=== PATIENT | female | born 1960 | race Caucasian/White ===

== ENCOUNTER 2016-08-17 12:02 | Emergency (ER) | payer OTHER ==
[~2016-08-17] VITALS: Ht 160 cm; Wt 82.6 kg
[2016-08-17 12:08] VITALS: TEMP 36.9; Ht 160 cm; Wt 82.6 kg
[2016-08-17] MEDS ORDERED: TRAZ1TAB52 PO (12:56)
[2016-08-17] MEDS ORDERED: BUSP15TA70 PO (12:56)
[2016-08-17] MEDS ORDERED: BUPR-79 PO (12:56)
[2016-08-17] MEDS ORDERED: CLON1TAB3 PO (12:56)
[2016-08-17] MEDS ORDERED: PROB1TAB16 PO (12:56)
[2016-08-17] MEDS ORDERED: HYDR25CA PO (12:56)
[2016-08-17] MEDS ORDERED: ESCI1TAB10 PO (12:56)
[2016-08-17] MEDS ORDERED: METH1TAB12 PO (12:56)
[2016-08-17] MEDS ORDERED: TRIA37.5 PO (12:56)
[2016-08-17] MEDS ORDERED: LOSA50TA6 PO (12:56)
[2016-08-17] MEDS ORDERED: SULF800T23 PO (12:57)
[2016-08-17] MEDS ORDERED: CEPH500T PO (12:57)
[2016-08-17] MEDS ORDERED: LIDOCAINE/EPINEPHRINE 1% 20 ML VIAL INFIL ONE (13:15)
--- NOTE | 2016-08-17 13:55 | EMERGENCY ROOM VISIT NOTE ---
ED Visit Note First contact with patient: 12:22 CHIEF COMPLAINT: Infection of the right posterior thigh HISTORY OF PRESENT ILLNESS: This 56-year-old female patient presents to the emergency department approximately 2 weeks after they noticed a hard, red, tender area in the right posterior thigh. It has been slowly getting larger, more painful and tender. Patient states this has been going on for several months, and reports initially, the abscess began as a great size lump under the skin. She states she had been picking and squeezing at the lump over the past several months. Patient states 2 weeks ago, she was in [place], when she had her daughter, who is a PA student, look at the lump. Her daughter recommended she have the abscess looked at locally. She states since this time, it is getting larger, more painful, with increased redness surrounding the wound. Patient was seen at [facility] 2 days ago due to increased pain, warmth , redness, and states she was started on Keflex and Bactrim. She has been taking these medications as prescribed, and is on day 3. She states on Thursday, she had experienced a low-grade fever of 99.9F, and had been feeling "like crap." Patient states today, she is feeling slightly better, with improving redness, however the redness and pain are still present. No fever, chills, or loss of appetite. There has been no drainage from the area. There was no injury to the area preceding the infection. They rate the pain as sore and 3/ 10. They have tried warm, moist compresses, with minimal relief. The patient is not diabetic. The patient has no history of subcutaneous abscesses. REVIEW OF SYSTEMS: A 6-system review of systems was performed with positives and pertinent negatives listed in the history of present illness. All other systems were reviewed and are negative. ALLERGIES: None MEDICATIONS: Wellbutrin, Lexapro, Cozaar, Dyazide, Ritalin, probiotic, Klonopin , BuSpar, hydroxyzine, trazodone PMH: Anxiety, depression, ADD, hypertension, insomnia SOCIAL HISTORY: Patient lives locally alone. Patient denies drug, tobacco use. She does report occasional alcohol use. PHYSICAL EXAM: Vital Signs: Reviewed Nurse's notes, vital signs stable. GENERAL : 56-year-old female, no acute distress, non toxic in appearance, well- developed well-nourished. SKIN: There is an erythematous indurated area on the right posterior thigh which measures about 8 cm in diameter. It is fluctuant but there is no pointing or drainage. There is a zone of inflammation around it but no lymphangitis. Capillary refill less than 2 seconds. MUSCULOSKELETAL : There is no limitation of the range of motion of the right lower extremity. EMERGENCY DEPARTMENT COURSE: I examined the patient. Discussion with patient regarding options to incise and drain the lesion versus follow-up outpatient with a surgeon due to the size and location of the wound. Patient prefers to move forward with I&D at this time. Verbal consent was obtained to perform the procedure. After saline and Betadine cleansing and 10 mL of 1% buffered lidocaine with epinephrine anesthesia, the abscess was incised with a number 11 scalpel blade. A large amount of purulent material was released with more expressed by pressure. A swab was obtained for culture. The patient complains of inadequate anesthesia at this time, so another 7 mL of 1% buffered lidocaine with epinephrine was used to anesthetize the abscess cavity. The abscess cavity was further probed with a needle emergency vehicle driver and portions of the deep pocket expressed. Patient unable to tolerate complete expression of the deep pocket so procedure terminated at this time due to patient request. Suspect superior wall of abscess remains. The abscess cavity was then copiously irrigated with sterile saline under pressure. The area was then packed with bacitracin soaked packing. The area was cleaned with sterile saline and dressed with a bulky bandage. The patient tolerated the procedure well. The patient was discharged home in stable condition. DIAGNOSIS: Abscess of the right posterior thigh DIFFERENTIAL DIAGNOSIS: Cellulitis, cyst, sepsis, and others. DISCHARGE INSTRUCTIONS & TREATMENT: You were seen in the Emergency Department for Incision and Drainage of abscess located on right posterior thigh. You will NEED to return to the Emergency Department or see the general surgeon to have the packing removed/changed in 24 hours. This packing is NOT dissolvable and WILL need to be removed by a health care provider. Try to leave the packing in place until you return to the Emergency Department. Continue taking Bactrim and Keflex as previously prescribed. Stop these medications and contact a medical provider if you were to develop any significant adverse side effects including: wheezing, shortness of breath, passing out, vomiting, or a diffuse rash. Always take antibiotics as directed and COMPLETE the ENTIRE course regardless of the improvement of your symptoms. Proper wound care is essential for adequate wound healing and infection prevention. Do not scour over the wound while bathing. If the wound gets wet, pat dry with a towel. Do not submerse the wound (i.e. bathe or dish wash) and water. Look for signs of infection of the wound including: increased pain, swelling, foul discharge, streaking, or increased temperature. If any of these are noticed you should return to the Emergency Department for further assessment and treatment. As with any laceration you may have received nerve damage to the surrounding tissues. This damage may or may not be permanent. For pain control, you can use the following eghu-erj-qjxmpup medicines (if >12 yo): -Extra strength (500mg/tab) Tylenol (acetaminophen) 2 tabs every 6 hours as needed. Do not exceed 8 tablets in a 24 hour period. Avoid taking more than 4 grams (4000 mg) of Tylenol per day. This includes any other sources of acetaminophen you may take on a regular basis. - Regular strength (200 mg/tab) Advil (ibuprofen)2-3 tabs every 4-6 hours as needed. Do not exceed a dose of 3200 mg per day. You may alternate these 2 medications every 3 hours, as previously discussed. Return to the emergency department if your symptoms worsen despite treatment course outlined above. Follow-up with the general surgeon in 1-2 days. If they are unable to see you in a timely manner, you should follow up with your primary care provider in the same amount of time. If your primary care provider is unable to change the packing in the wound, you should return to the emergency department tomorrow for this procedure. Problem List Medical Problems: (1) Depression Status: Chronic (2) HTN (hypertension) Status: Chronic Current/Historical Medications Scheduled Bupropion (Wellbutrin Sr), 150 MG PO DAILY Buspirone Hcl (Buspar), 15 MG PO HS Cephalexin (Cephalexin), 1 TAB PO TID Clonazepam (Klonopin), 1 MG PO HS Escitalopram Oxalate (Lexapro), 20 MG PO DAILY Hydroxyzine Pamoate (Vistaril), 1 CAP PO HS Losartan Potassium (Cozaar), 50 MG PO DAILY Methylphenidate Hcl (Ritalin), 20 MG PO BID Probiotic Product (Probiotic), 1 TAB PO DAILY Sulfamethoxazole-Trimethoprim (Bactrim Ds 800MG/160MG), 1 TAB PO BID Trazodone Hcl (Desyrel), 150 MG PO HS Triamterene/Hctz (Dyazide 37.5MG/25MG), 1 TAB PO DAILY Allergies Coded Allergies: No Known Allergies (Unverified , 08/17/16) Vital Signs Date Time Temp Pulse Resp B/P (MAP) Pulse Ox O2 Delivery O2 Flow Rate FiO2 08/17/16 12:08 36.9 115 18 129/67 96 Room Air Departure Information Impression Primary Impression: Abscess of right thigh Dispostion Home / Self-Care Condition GOOD Referrals Anisha Chan PA-C (PCP) Rikki Farmer M.D. Patient Instructions ED Abscess Faye, [facility] Additional Instructions You were seen in the Emergency Department for Incision and Drainage of abscess located on right posterior thigh. You will NEED to return to the Emergency Department or see the general surgeon to have the packing removed/changed in 24 hours. This packing is NOT dissolvable and WILL need to be removed by a health care provider. Try to leave the packing in place until you return to the Emergency Department. Continue taking Bactrim and Keflex as previously prescribed. Stop these medications and contact a medical provider if you were to develop any significant adverse side effects including: wheezing, shortness of breath, passing out, vomiting, or a diffuse rash. Always take antibiotics as directed and COMPLETE the ENTIRE course regardless of the improvement of your symptoms. Proper wound care is essential for adequate wound healing and infection prevention. Do not scour over the wound while bathing. If the wound gets wet, pat dry with a towel. Do not submerse the wound (i.e. bathe or dish wash) and water. Look for signs of infection of the wound including: increased pain, swelling, foul discharge, streaking, or increased temperature. If any of these are noticed you should return to the Emergency Department for further assessment and treatment. As with any laceration you may have received nerve damage to the surrounding tissues. This damage may or may not be permanent. For pain control, you can use the following jkcx-gyq-qkcrmgq medicines (if >12 yo): -Extra strength (500mg/tab) Tylenol (acetaminophen) 2 tabs every 6 hours as needed. Do not exceed 8 tablets in a 24 hour period. Avoid taking more than 4 grams (4000 mg) of Tylenol per day. This includes any other sources of acetaminophen you may take on a regular basis. - Regular strength (200 mg/tab) Advil (ibuprofen)2-3 tabs every 4-6 hours as needed. Do not exceed a dose of 3200 mg per day. You may alternate these 2 medications every 3 hours, as previously discussed. Return to the emergency department if your symptoms worsen despite treatment course outlined above. Follow-up with the general surgeon in 1-2 days. If they are unable to see you in a timely manner, you should follow up with your primary care provider in the same amount of time. If your primary care provider is unable to change the packing in the wound, you should return to the emergency department tomorrow for this procedure.
[2016-08-17 14:02] VITALS: BP 132/78; PULSE 98; O2SAT 97
== END 2016-08-17 14:04 | disposition home or self-care (01) ==
LOC: C.EDB 12:04 → C.EDD 14:04
DX: L02.415 Cutaneous abscess of right lower limb (principal); F41.9 Anxiety disorder, unspecified; F32.9 Major depressive disorder, single episode, unspecified; I10 Essential (primary) hypertension; G47.00 Insomnia, unspecified; F98.8 Other specified behavioral and emotional disorders with onset usually occurring in childhood and adolescence; Z79.899 Other long term (current) drug therapy

== ENCOUNTER → 2017-04-20 | Outpatient (CLI) | payer OTHER ==
[~2017-04-20] MED LIST: BUPR-79 PO; BUSP15TA70 PO; CEPH500T PO; CLON1TAB3 PO; ESCI1TAB10 PO; HYDR25CA PO; LOSA50TA6 PO; METH1TAB12 PO; PROB1TAB16 PO; SULF800T23 PO; TRAZ1TAB52 PO; TRIA37.5 PO
[2017-04-20 12:15] LABS: ALKALINE PHOSPHATASE 107 U/L (45-117); ALT/SGPT 28 U/L (12-78); AST/SGOT 20 U/L (15-37); BLOOD UREA NITROGEN 14 mg/dl (7-18); CALCIUM 8.6 mg/dl (8.5-10.1); CARBON DIOXIDE 27 mmol/L (21-32); CREATININE 0.88 mg/dl (0.60-1.20); GLUCOSE 97 mg/dl (70-99); SODIUM 137 mmol/L (136-145); TOTAL PROTEIN 7.6 gm/dl (6.4-8.2)
[2017-04-20 12:20] LABS: CHOLESTEROL 251 mg/dl (0-200); LDL CHOLESTEROL CALCULATED 159 mg/dl
[2017-04-23 22:17] LABS: INSULIN LIKE GROWTH FACTOR-I 85 ng/mL (50-317)
== END | disposition home or self-care (01) ==
LOC: C.LAB1850 09:33
PROVIDERS: ATTEND Internal Medicine Endocrinology, Diabetes & Metabolism
DX: R63.5 Abnormal weight gain (principal); R61 Generalized hyperhidrosis; M79.1 Myalgia

== ENCOUNTER → 2017-05-07 | Outpatient (CLI) | payer OTHER ==
--- NOTE | 2017-05-08 06:23 | PAP/PSG TECHNICIAN REPORT ---
[facility] Polysomnogram Report Study name: None Report date: 05/08/2017 Study date: 05/07/2017 Referring Physician: Dr. Fisher Name: MUKUND YATES Interpreting Physician: Robert Fuller M.D. Date of : 1960 Inspector And Unloader: Emanuel Ramirez RPSGT. Sex: Female Age: 56 StudyType: PSG Weight: 185 lbs Height: 56 years, Height 5' 3" BMI: 32.77 Medications: WELLBUTRIN SR 200 MG, BUSPAR 15 MG, KLONOPIN 1 MG, LEXAPRO 20 MG, NEURONTIN 100 MG, ATARAX 10 MG, COZAAR 50 MG, RITALIN 20 MG, SEROQUEL 100 MG, MAXZIDE 37.5-25 MG Patient History PATIENT HAS HISTORY OF CRAMPS, JERKS IN LEGS, RESTLESSNESS, INSOMNIA, TALKING IN HER SLEEP AND SNORING. ALSO HAS HISTORY OF BIPOLAR DISORDER AND HYPERTENSION. SHE HAS GAINED AROUND 68LBS IN THE PAST THREE YEARS. SHE IS HERE TODAY FOR AN EVALUATION FOR GRANT. ESS = 6 RM 7 Parameters Monitored NPSG: E1-M2, E2-M1, Fp1-M2, Fp2-M1, F3-M2, F4-M2, F4-M1, C3-M2, C4-M2, C4-M1, O1-M2, O2-M2, O2-M1, T3-M2, T4-M1, P3-M2, P4-M1, CHIN1, CHIN2, HR, EKG, Legs, PFLOW, SNOR, FLOW, CFLOW, Tidal Volume, THOR, ABDO, SpO2, PLTH, CPRESS, ETCO2 Wave, ETCO2, pH Sleep Architecture Sleep Stages Time at Lights Off 10:22:22 PM STAGES Time (min.) TST (%) Time at Lights On 6:02:22 AM Wake 27.5 -- Total Recording Time (TRT) 460.50 min. N1 17.0 4 Total Sleep Period (TSP) 439.5 min. N2 265.0 61 Total Sleep Time (TST) 432.5min. N3 79.0 18 Awake Time 27.5 min. REM 71.5 17 Wake after Sleep Onset 7.0 min. Sleep Efficiency (SE) 94 % Sleep Onset Latency (PHILIP) 20.5 min. Number of Stage 1 Shifts None Awakenings 10 Stage Changes 61 Number of REM periods 4 REM 71.5 17 REM Latency 334.5 min. NREM 361.0 83 Body Position Analysis Supine Right Left Side Prone Vertical Total Sleep Time (min.) 24.2 151.6 116.2 267.81 142.0 0.0 Total Sleep Time (%) 5% 35% 27% 62 33% N/A% Total Sleep Time REM (min.) 0.0 71.5 0.0 None 0.0 0.0 Total Sleep Time NREM (min.) 23.2 80.1 116.2 None 141.5 0.0 Intermittent Wake (min.) 1.0 3.0 23.0 None 0.5 0.0 Total Sleep Period (%) 6% None None None None None Arousals Myoclonus (PLM) * Events Count Index Events Count Index Spontaneous 20 3 Events Awake (PLMW) 17 37.1 Respiratory 8 1.2 Events Asleep w/ Arousal (PLMA) 7 1.0 PLM 7 1 Events Asleep w/o Arousal (PLMS) 68 9.4 Snoring 1 0 Total Asleep 75 10.4 Total 36 5 Total 92 12 Respiratory Analysis * CA OA MA CH H RERA Total Count 4 8 0 0 26 5 38 Index 0.6 1.1 0.0 0 3.6 1 6.0 Mean Duration 14.0 12.9 0.0 0.00 17.5 14.1 15.9 Longest Duration 15.2 15.3 0.0 0.00 0.0 16.6 35.8 Respiratory Event Summary Total Supine ~Supine Right Left Prone REM NREM Apneas Count 12 1 11 5 6 0 2 10 Index 1.7 3 2 2.0 3.1 0 2 2 Hypopneas (4% Desat) Count 26 8 18 8 5 5 5 21 Index 3.6 20.7 3 3.2 2.6 2.1 4.2 3.5 Apneas & All Hypopneas Count 38 9 29 13 11 5 7 31 Index 5.3 23 4 5 6 2 5.9 5.2 Respiratory Events (Hospital Wellness Coordinator+All Hyp+RERA) Count 38 11 32 14 13 5 7 31 Index 6.0 28 5 5.5 6.7 2.1 5.9 6.0 Respiratory Related Arousal Count 8 11 6 2 3 1 1 8 Index 1.2 8 1 1 2 0 1 1 Snoring Analysis Supine Right Left Prone REM NREM Total Snore duration 16.9 min Snores count 31 287 132 259 20 689 709 Snore mean duration 1.4 Sec Snores index 80 114 68 110 16.8 114.5 98.4 TST with snoring (%) 3.9% SpO2 Analysis Total REM NREM Awake <50% 0.0 min. 0.0 min. 0.0 min. 0.0 min. 51 - 60% 0.0 min. 0.0 min. 0.0 min. 0.0 min. 61 - 70% 0.0 min. 0.0 min. 0.0 min. 0.0 min. 71 - 80% 0.0 min. 0.0 min. 0.0 min. 0.0 min. 81 - 90% 14.7 min. 1.5 min. 12.7 min. 0.5 min. 91 - 100% 444.6 min. 70.0 min. 347.9 min. 26.7 min. Average 93 93 93 94 Minimum SpO2 86 88 86 89 Desaturation Event Index 4.8 4.2 4.8 6.5 # Desat. Events below 89% 6 1 5 N/A Time(%) with Saturation below 89% 0.3 0.0 0.3 0.0 Time(min.) with Saturation below 89% 1.3 0.2 1.2 0.0 Heart Rate Analysis End Tidal CO2 Analysis Min (bpm) Max (bpm) Average (bpm) TSP (mins) % of TSP Awake 58 74 64 Above 55 mmHg 0.0 0.0 NREM 57 74 64 50-55 mmHg 0.0 0.0 REM 57 74 66 45-50 mmHg 27.3 6.3 Overall 57 74 64 40-45 mmHg 220.9 51.1 35-40 mmHg 53.0 12.2 30-35 mmHg 15.8 3.7 Average ETCO2 0.1 Supplemental O2 Values Minimum O2 level: None Value Start Time End Time Inspector And Unloader Comments Ms. Yates slept in the right, left, supine and prone positions. No cardiac arrhythmia noted. Leg movements noted. No bruxism noted. Snoring was noted and scored as a 3 on a scale of 1 through 5. (0=no snoring, 5=snoring loud enough to be heard through a closed door or down the gonsalez way) Ms. Yates awoke to use the restroom 0 times during the night. Ms. Yates stated I slept as well as I do when I am in my own bed. The final report will be interpreted and signed by a sleep physician. The completed physician report will then be placed in the patient medical record. Therapy (cm H2O) 0 TIB (min.) 460.0 TST (min.) 432.5 Sleep Onset (min.) 20.5 REM Onset From Sleep (min.) 334.5 Sleep Efficiency % 94 Wakefulness (%) 6 Wakefulness (min.) 27.5 NREM 1 (%) 4 NREM 1 (min.) 17.0 NREM 2 (%) 61 NREM 2 (min.) 265.0 NREM 3 (%) 18 NREM 3 (min.) 79.0 REM (%) 17 REM (min.) 71.5 # Arousals 36 Arousal Index 5 # Snore 709 Snore Index 98.4 AHI 5.3 AHI Supine 23 AHI Non-Supine 4 NREM AHI 5.2 REM AHI 5.9 RDI 6.0 # Obstructive Apnea 8 # Central Apnea 4 # Mixed Apnea 0 # Hypopneas 26 RERAs 5 Total Respiratory Events 44 Time Below SpO2 89% (min.) 1.3 Mean NREM SpO2 (%) 93 Mean REM SpO2 (%) 93 Mean Sleep SpO2 (%) 93 Min NREM SpO2 (%) 86 Min REM SpO2 (%) 88 Position Supine (min.) 24.2 Position Non-supine (min.) 409.3 LM Index Sleep 10.4 LM Index NREM 9.8 LM Index REM 13.4 Mean Heart Rate (bpm) 64 Min Heart Rate (bpm) 57
--- NOTE | 2017-05-11 11:21 | POLYSOMNOGRAPH REPORT ---
CLINICAL DATA: A 56-year-old female with BMI of 32.[address] Fisher with a history of cramps, jerks in her legs, restlessness, insomnia, sleep talking, and snoring. She also has bipolar disorder and hypertension. She has gained 68 pounds in the last 3 years. Her [place] sleepiness score is 6/24. SLEEP ARCHITECTURE: Total sleep period was 439.5 minutes. Total sleep time was 432.5 minutes divided between 361 minutes of non-REM sleep and 71.5 minutes of REM sleep. Sleep onset latency was 20.5 minutes. REM latency was delayed at 334.5 minutes. Sleep efficiency was 94%. Wake after sleep onset was 7 minutes. Sleep consisted of stage N1 4%, stage N2 61%, stage N3 18%, and REM 17%. AROUSAL DATA: Thirty six arousals were recorded for an index of 5 per hour. Twenty were spontaneous. PERIODIC LIMB MOVEMENT DATA: Seventy five limb movements during sleep were noted for an index of 10.4 per hour with arousal index of 1 per hour. RESPIRATORY DATA: Very mild/borderline sleep apnea was documented. The AHI was 5.3. The RDI was 6. There were 4 central and 8 obstructive apneic episodes. The longest duration of apnea was 15.3 seconds. There were 26 hypopneic episodes with a mean duration of 17.5 seconds. There were 5 RERAs. The longest RERA was 16.6 seconds. OXIMETRY DATA: Transient hypoxemia was seen. Oxygen brittnee was 86% during non-REM sleep. Mean saturation was 93%. Time below 89% was 1.3 minutes. ECHOCARDIOGRAM: Heart rates ranged from 57-74 beats per minute. No arrhythmias were noted. ROUSTABOUT CREW LEADER'S COMMENTS AND TREATMENT SUMMARY: The patient slept in the right, left, supine, and prone position. Snoring was moderate, rated 3 on a scale of 1-5. IMPRESSION: Very mild sleep apnea/hypopnea with an apnea/hypopnea index of 5.3 and a respiratory disturbance index of 6 without significant nocturnal hypoxemia or abnormal limb movements during sleep. RECOMMENDATIONS: The patient may benefit from weight loss, use of an oral appliance, or use of CPAP. Clinical correlation is needed. [facility]
== END | disposition home or self-care (01) ==
LOC: C.NEUR 20:00
PROVIDERS: ATTEND Internal Medicine
DX: G47.33 Obstructive sleep apnea (adult) (pediatric) (principal)